=== PATIENT | female | born 1960 | race Caucasian/White ===

== ENCOUNTER → 2024-06-04 15:20 | Outpatient (REF) | payer MEDICARE, OTHER, SELFPAY | LOC: RAD 15:20 | PROVIDERS: ATTENDING PHYSICIAN Family Medicine; FAMILY PHYSICIAN Family Medicine | DX: M25.511 Pain in right shoulder (principal); M79.601 Pain in right arm | CPT/HCPCS: 73030 ==

== ENCOUNTER → 2024-06-21 09:32 | Outpatient (REF) | payer MEDICARE, OTHER, SELFPAY | LOC: MRI 3T 09:32 | PROVIDERS: ATTENDING PHYSICIAN Physician Assistant; FAMILY PHYSICIAN Family Medicine | DX: M54.12 Radiculopathy, cervical region (principal) | CPT/HCPCS: 72141 ==